=== PATIENT | male | born 1935 | race Caucasian/White ===

== ENCOUNTER 2016-05-25 05:21 | Inpatient (IN) | payer OTHER ==
[2016-05-19 11:35] LABS: URINE BILIRUBIN NEGATIVE (Negative); URINE BLOOD NEGATIVE (Negative); URINE COLOR YELLOW; URINE GLUCOSE-RANDOM* NEGATIVE (Negative); URINE KETONES NEGATIVE (Negative); URINE LEUKOCYTES-REFLEX NEGATIVE (Negative); URINE PROTEIN (DIPSTICK) NEGATIVE (Negative); URINE SPECIFIC GRAVITY 1.015 (1.003-1.035); URINE UROBILINOGEN 0.2 E.U./dl (0.2-1.0)
[2016-05-19 11:36] LABS: HEMATOCRIT 40.5 % (42.0-52.0); HEMOGLOBIN 13.6 gm/dL (14.0-18.0); MCHC 33.6 % (28.0-37.0); MCV 86.3 fL (80.0-100.0); RBC 4.69 mil/uL (4.50-6.00); RDW 14.5 % (10.5-14.5); WBC 7.6 thou/uL (4.0-11.0)
[2016-05-19 11:49] LABS: ALBUMIN 3.6 g/dL (3.4-5.0); CALCIUM 8.9 mg/dL (8.5-10.1); TOTAL BILIRUBIN 0.5 mg/dL (<0.1-1.0); TOTAL PROTEIN 7.5 g/dL (6.4-8.2)
[2016-05-19 11:50] LABS: APTT 48.9 Seconds (24.5-32.8); INR 3.1; PROTIME 31.7 Seconds (9.3-11.4)
[~2016-05-25] VITALS: Ht 177.8 cm; Wt 98.4 kg
--- NOTE | ~2016-05-25 | H ---
[facility] [address] [place] [address] HISTORY AND PHYSICAL Name: MALCOLM BACK JR Room #: 240-P [facility] IN M.R.#: [id number] Admission: 05/25/16 Attend Phys: Jesse Gregory MD Discharge: 05/26/16 Date of : 33 Report #: [id number] THIS REPORT FOR: //name// For History and Physical, please see office documentation/handwritten note in the patient's medical record. <ELECTRONICALLY SIGNED> By: Jesse Gregory MD 06/13/16 1224 0939 Jesse Gregory MD /
--- NOTE | ~2016-05-25 | EKG ---
[address] [address] ELECTROCARDIOGRAM REPORT Name: NAZANIN,MALCOLM Rick Room #: PRE IN [facility]#: [id number] Admission: Attend Phys: Jesse Gregory MD Discharge: Date of : 34 Report #: [id number] THIS REPORT FOR: //name// [facility] Test Date: 2016-05-19 Test Time: 10:36:49 Pat Name: MALCOLM BACK Department: Room: Gender: M Nurse Ob: emily kwon rn : 1935 Requested By: Jesse Gregory Order Number: [id number] : Terrence Sotelo Measurements Intervals [place] Rate: 79 P: [place]: QRS: 24 QRSD: 107 T: 60 QT: 445 QTc: 511 Interpretive Statements Atrial fibrillation Abnormal R-wave progression, early transition Borderline abnrm T, anterolateral leads No previous ECG available for comparison Electronically Signed On 05-20-2016 11:07:58 LEG ASSEMBLER by Terrence Sotelo [email or web address] <ELECTRONICALLY SIGNED> By: Terrence Sotelo MD 05/20/16 1107 1036 1036 MD GISEL Gaona
--- NOTE | ~2016-05-25 | O ---
[facility] [place] [address] OPERATIVE REPORT Name: MALCOLM BACK Room #: 240-P [facility] IN M.R.#: [id number] Admission: 05/25/16 Attend Phys: Jesse Gregory MD Discharge: 05/26/16 Date of : 34 Report #: [id number] THIS REPORT FOR: //name// CC: Clayton Gregory DATE OF SERVICE: 05/25/2016 PREOPERATIVE DIAGNOSIS: Infrarenal abdominal aortic aneurysm. POSTOPERATIVE DIAGNOSIS: Infrarenal abdominal aortic aneurysm. OPERATION: Implant of abdominal aortic stent graft. SURGEONS: Jesse Gregory MD and Spenser Zelaya MD. YARN SALVAGER: Claude Constantino. ANESTHESIA: General. INDICATIONS: The patient is an 80-year-old with an infrarenal abdominal aortic aneurysm. Neck and distal landing zones are suitable for stent graft placement. FINDINGS AND TECHNIQUE: After general anesthesia was established, incisions were made in both groins to expose the common femoral arteries; 10,000 units of heparin were given. In each side, the common femoral arteries were accessed with Seldinger needles and guidewires and 11-Jordanian sheaths were placed through the right side guidewire, then exchange catheter, then Flako wire was placed and the same thing was done to the left side. To the right side, cutdown was made and the 16-Jordanian main body sheath was placed. To the left side, the 12-Jordanian main body sheath was placed. A 23 x 14 mm x 16 cm main body device was selected to the left side, a visceral Select catheter was used to access the lower, in this case the right renal artery, and a catheter and balloon guide were placed in it to localize it. Several contrast injections were given to localize the renal and the renal artery takeoff. With this information, the main body was deployed. The contralateral gate was cannulated. Good placement within the contralateral gate was ascertained with the pigtail spin technique. A left iliac sheath shot was performed to localize the hypogastric takeoff and a marker catheter was used to measure the distance from the gate to the hypogastric. With this information, a 14 mm x 14 cm contralateral device was deployed within the contralateral limb and landed just above the left [facility] [address] [place] [address] OPERATIVE REPORT Name: MALCOLM BACK Room #: 240-P [facility] IN ..#: [id number] Admission: 05/25/16 Attend Phys: Jesse Gregory MD Discharge: 05/26/16 Date of : 34 Report #: [id number] hypogastric takeoff. The remainder of the main body was deployed and then balloons were placed through both sides to fully open the graft. A final arteriogram was taken, but this showed an area of type 1 leak. A Tri-Lobe balloon was then used to deploy the graft and iron out any folds within it and then a final arteriogram showed that there was no evidence for type 1 leak. With all of the devices in place, the dilators were replaced into the sheaths and then both the sheaths and dilators were removed, and then the guidewires were removed and then the femoral artery cutdowns were repaired with interrupted Prolene. When flow was reestablished, protamine was given to reverse the heparin, given at the outset of the case. Hemostasis was ascertained. Good pulses were palpable distally. Wounds were closed in layers. The patient was taken to the recovery area in good condition having tolerated the procedure well. <ELECTRONICALLY SIGNED> By: Jesse Gregory MD 05/29/16 1024 05 2329 Jesse Gregory MD /nt
--- NOTE | ~2016-05-25 | CATHLAB ---
[facility] [place] [address] INVASIVE PROCEDURE REPORT Name: MALCOLM BACK JR Room #: 240-P [facility] IN ..#: [id number] Admission: 05/25/16 Attend Phys: Jesse Gregory MD Discharge: 05/26/16 Date of : 34 Date of Service: 05/25/16 1524 Report #: [id number] THIS REPORT FOR: //name// CC: Clayton Gregory DATE OF SERVICE: 05/25/2016 NAME OF THE STUDY: 1. Abdominal aortic aneurysm repair using Arcata Excluder stent graft. 2. Bilateral renal angiography. INDICATIONS: 1. Abdominal aortic aneurysm. 2. Hypertension. 3. Hypercholesterolemia. 4. Coronary artery disease. OPERATORS: 1. Jesse Gregory MD of cardiovascular surgery. 2. Spenser Núñez MD of interventional radiology. PROCEDURE: Procedure and risk of stent graft, repair of abdominal aortic aneurysm, as well as the option of open repair had been thoroughly discussed with the patient by Dr. Gregory and consent obtained. DESCRIPTION OF PROCEDURE: The patient was placed on the interventional operating suite table and general anesthesia was induced. The patient's abdomen and both groins were prepped and draped in normal sterile fashion. Dr. Gregory performed cut down first over the right groin and then of the left groin. Both common femoral arteries were secured with vessel loops. I then made a puncture into the right common femoral artery and a 12-Serbian sheath was placed. I then placed the catheter into the proximal descending thoracic aorta to allow placement of the support wire. Following this, a 16-Serbian Arcata sheath was placed via the right groin to the level of the abdominal aorta. I then made a puncture into the left common femoral artery and the wire followed by 12-Serbian sheath was placed. The angled catheter was then placed to the level of the proximal descending thoracic aorta to allow placement of a support wire. Following this, we placed a 12-Serbian Arcata sheath via the left groin with its tip positioned into the lower abdominal aorta. Through this, I placed a visceral catheter and catheterized the left renal artery and left renal angiogram was obtained. Catheter was then placed in the right renal artery and right renal angiogram was obtained. Following this, a wire was placed into the right renal artery for positioning purposes followed by guiding catheter at the origin. We selected a 23 mm x 14 x 16 cm Arcata Excluder stent graft and we placed this via the right groin. Dr. Duarte and I worked together for [address] [address] INVASIVE PROCEDURE REPORT Name: MALCOLM BACK JR Room #: 240-P [facility].#: [id number] Admission: 05/25/16 Attend Phys: Jesse Gregory MD Discharge: 05/26/16 Date of : 33 Date of Service: 05/25/16 1524 Report #: [id number] positioning and deployment of the main body of the stent graft just below the level of the renal arteries. Following this, I cannulated via the left groin the contralateral gate and confirmed good intragraft position in the standard fashion. Following this, we placed a 14 mm x 14 cm contralateral limb via the left groin. Dr. Gregory and I worked together for positioning and deployment of the left iliac limb. Following this, occlusion balloon dilatation throughout the left iliac limb and at the upper portion of the graft was accomplished. Following this, Dr. Gregory and I finished deployment of the main body of the stent graft in a standard fashion. Occlusion balloon inflations throughout the right iliac limb were performed. Aortoiliac angiography was performed and showed a subtle type 1 endoleak. At this point, the Arcata Tri-Lobe balloon was taken via the right groin and multiple inflations at the proximal attachment were carried out. Final aortoiliac angiogram was performed. Catheters were removed. Both the groin sheaths were carefully removed followed by the wires. Dr. Gregory then closed the arteriotomy sites in the right and left common femoral arteries and both cutdown incisions. FINDINGS: Left renal angiogram shows left renal arteries widely patent. Right renal angiogram shows the right renal artery has good patency. The right renal artery is the lowest renal artery. Abdominal aortic aneurysm repair using Arcata Excluder stent graft was carried out in a technically satisfactory manner. At the conclusion of the procedure, there was good flow throughout the graft with no evidence of endoleak identified. The iliac artery shows good patency bilaterally with good position of the graft. IMPRESSION: Abdominal aortic aneurysm repair using Arcata Excluder stent graft as fully described above. <ELECTRONICALLY SIGNED> By: Spenser Núñez MD 05/30/16 1333 1524 2220 Spenser Núñez MD /nt
[~2016-05-25 05:21] MED LIST: ASPIR 8181 MG PO; ASPIRIN EC81 M1 PO; BRILINTA90 MG PO; COUMADIN 4 MG TA4 M1 PO; FOSINOPRIL SODI40 M1 PO; HYDROCHLOROTHIA25 M1 PO; MULTI VITAMIN1 EACH; NORVASC5 MG PO; OMEPRAZOLE 20 M20 M1 PO; PACERONE 200 M200 M1 PO; POTASSIUM CHLO10 ME1 PO; PRAVACHOL40 MG PO; TOPROL XL25 MG PO; TOPROL XL50 MG PO
[2016-05-25 11:30] VITALS: BP 135/81
[2016-05-25 19:17] VITALS: BP 120/69
[2016-05-25 19:31] VITALS: BP 120/73
[2016-05-25 19:45] VITALS: BP 124/75
[2016-05-26] VITALS (7 sets, daily range): BP systolic 104–122; BP diastolic 56–78
[2016-05-26 05:56] LABS: HEMATOCRIT 34.4 % (42.0-52.0); HEMOGLOBIN 11.4 gm/dL (14.0-18.0); MCH 29.4 pg (26.0-34.0); MCHC 33.2 % (28.0-37.0); MCV 88.4 fL (80.0-100.0); RBC 3.88 mil/uL (4.50-6.00); RDW 14.5 % (10.5-14.5); WBC 10.2 thou/uL (4.0-11.0)
[2016-05-26 06:29] LABS: CALCIUM 7.9 mg/dL (8.5-10.1); CREATININE 0.9 mg/dL (0.6-1.3); POTASSIUM 3.7 mmol/L (3.5-5.1)
== END 2016-05-26 14:18 | disposition home or self-care (01) | DRG 269 ==
LOC: ICU 05:21 → TBA 05:21 → PRE 08:52 → ICU 18:52
PROVIDERS: Physician Assistant; Surgery Vascular Surgery
PROC: 04V03DZ Restriction of Abdominal Aorta with Intraluminal Device, Percutaneous Approach (ICD-10-PCS; principal; 2016-05-25)
PROC: B4101ZZ Fluoroscopy of Abdominal Aorta using Low Osmolar Contrast (ICD-10-PCS; principal; 2016-05-25)
PROC: 03HB33Z Insertion of Infusion Device into Right Radial Artery, Percutaneous Approach (ICD-10-PCS; 2016-05-25)
DX: I71.4 Abdominal aortic aneurysm, without rupture (principal); I10 Essential (primary) hypertension; I25.10 Atherosclerotic heart disease of native coronary artery without angina pectoris; I48.91 Unspecified atrial fibrillation; E78.00 Pure hypercholesterolemia, unspecified; Z79.899 Other long term (current) drug therapy
CPT/HCPCS: 10078; 47375; 48888; 50010; 50101; 50386; 50455; 51078; 51751; 54118; 56524; 56526; 56531; 56668; 56760; 57093; 62110; 62900; 70005

== ENCOUNTER → 2016-10-19 | Outpatient (CLI) | payer OTHER ==
[~2016-10-19] VITALS: Ht 180.3 cm; Wt 93.0 kg
[~2016-10-19] MED LIST changes: +ELIQUIS5 MG PO
--- NOTE | ~2016-10-19 | H ---
[facility] [place] [address] HISTORY AND PHYSICAL Name: NAZANIN,MALCOLM Rick CROWLEY [id number] Admission: 10/19/16 Attend Phys: Dariel Bhandari Discharge: Date of : 34 Report #: [id number] THIS REPORT FOR: //name// CC: Clayton Bhandari HISTORY OF PRESENT ILLNESS: The patient is a very pleasant 80-year-old gentleman with known paroxysmal atrial fibrillation who presented for evaluation in the office and was found to be in atrial fibrillation symptoms. His amiodarone level was low and the dosing was increased. He had converted to atrial fib after having GI bleed earlier this year and has not reverted out spontaneously. He is symptomatic with exertional dyspnea and diaphoresis. PHYSICAL EXAMINATION: GENERAL: Revealed a well-developed, well-nourished white male resting comfortably in no acute distress. HEENT: Normocephalic, atraumatic. Pupils are equal, round, reactive to light and accommodation. Extraocular muscles are intact. Sclerae and conjunctivae are anicteric. NECK: JVD is normal. Carotid upstrokes are bilaterally symmetrical. No bruits are heard. No thyromegaly. No lymphadenopathy. LUNGS: Clear to auscultation. No wheezes, rhonchi or crackles. No CVA tenderness. CARDIAC: Demonstrates a regular rhythm. Normal first and second heart sounds. No ventricular or atrial gallops, no rubs noted. No murmurs. No lifts or heaves, PMI normal. ABDOMEN: Soft, nontender, nondistended. Normal bowel sounds. EXTREMITIES: Without cyanosis, clubbing or edema. Distal pulses are intact. DTR symmetrical. NEUROLOGIC: Cranial nerves 2-12 are grossly normal and symmetrical. PSYCHIATRIC: Alert, oriented with normal affect. SKIN: Warm and dry. VITAL SIGNS: Noted and reviewed in the chart. IMPRESSION: Paroxysmal atrial fibrillation, symptomatic. We will proceed with electrical cardioversion. The risks, complications and alternatives to electrical cardioversion and conscious sedation have been discussed with the patient. He voices understanding and wishes to proceed. <ELECTRONICALLY SIGNED> By: Dariel Bhandari MD 10/19/16 1718 1313 1415 Dariel Bhandari MD /nt
[2016-10-19 12:31] VITALS: BP 141/79
[2016-10-19 12:35] LABS: HEMATOCRIT 39.9 % (42.0-52.0); HEMOGLOBIN 12.7 gm/dL (14.0-18.0); MCH 25.6 pg (26.0-34.0); MCHC 31.7 g/dL (28.0-37.0); MCV 80.8 fL (80.0-100.0); RBC 4.94 mil/uL (4.50-6.00); RDW 15.7 % (10.5-14.5); WBC 6.8 thou/uL (4.0-11.0)
[2016-10-19 12:42] LABS: CALCIUM 9.1 mg/dL (8.5-10.1)
[2016-10-19 12:47] LABS: ALBUMIN 3.8 g/dL (3.4-5.0); TOTAL BILIRUBIN 0.3 mg/dL (<0.1-1.0); TOTAL PROTEIN 7.6 g/dL (6.4-8.2)
[2016-10-19 12:51] LABS: INR 1.8
== END | disposition home or self-care (01) ==
LOC: CATH 06:55
PROVIDERS: Internal Medicine
DX: I48.0 Paroxysmal atrial fibrillation (principal); Z53.9 Procedure and treatment not carried out, unspecified reason; I25.10 Atherosclerotic heart disease of native coronary artery without angina pectoris; I71.4 Abdominal aortic aneurysm, without rupture; Z79.899 Other long term (current) drug therapy; Z79.82 Long term (current) use of aspirin

== ENCOUNTER → 2016-11-16 | Outpatient (CLI) | payer OTHER ==
[~2016-11-16] VITALS: Ht 177.8 cm; Wt 93.0 kg
--- NOTE | ~2016-11-16 | CATHLAB ---
[facility] [address] [place] [address] INVASIVE PROCEDURE REPORT Name: MALCOLM BACK JR Room #: [facility]#: [id number] Admission: 11/16/16 Attend Phys: Dariel Worrell Discharge: Date of : 33 Date of Service: 12/16/16 0005 Report #: [id number] THIS REPORT FOR: //name// CC: Clayton Bhandari DATE OF SERVICE: 11/16/2016 INDICATIONS: This is an 80-year-old male patient with symptomatic paroxysmal atrial fibrillation. PROCEDURES: 1. Electrical cardioversion. 2. Supervision of conscious sedation. FISHER POT: Dariel Bhandari M.D. BRIEF DESCRIPTION OF PROCEDURE: After informed consent was obtained, the patient was brought to the cardiac catheterization prep and hold in stable condition. He was sedated with 2 mg of Versed and 25 of Demerol IV. Continuous electrocardiographic and oximetric monitoring was performed throughout the procedure. Utilizing AP paddles, a 200 joule synchronized biphasic shock was performed, which converted the patient to sinus rhythm with a first-degree AV block. Subsequent to this, the patient was reversed with Romazicon and Narcan per standard protocol. The patient tolerated the procedure well. There were no complications. <ELECTRONICALLY SIGNED> By: Dariel Bhandari MD 12/16/16 0842 0005 0037 Dariel Bhandari MD /ramiro
[2016-11-16 10:07] VITALS: BP 136/73
[2016-11-16 10:11] LABS: HEMATOCRIT 38.8 % (42.0-52.0); HEMOGLOBIN 12.6 gm/dL (14.0-18.0); MCH 25.7 pg (26.0-34.0); MCHC 32.5 g/dL (28.0-37.0); MCV 79.3 fL (80.0-100.0); RBC 4.9 mil/uL (4.50-6.00); RDW 16.8 % (10.5-14.5); WBC 6.4 thou/uL (4.0-11.0)
[2016-11-16 10:20] LABS: CALCIUM 9.3 mg/dL (8.5-10.1); CREATININE 1.2 mg/dL (0.7-1.3)
[2016-11-16 10:24] LABS: ALBUMIN 3.5 g/dL (3.4-5.0); APTT 32.1 Seconds (24.5-32.8); INR 1.1; PROTIME 10.9 Seconds (9.3-11.4); TOTAL BILIRUBIN 0.3 mg/dL (<0.1-1.0); TOTAL PROTEIN 7.7 g/dL (6.4-8.2)
== END | disposition home or self-care (01) ==
LOC: CATH 09:35
PROVIDERS: Internal Medicine
DX: I48.0 Paroxysmal atrial fibrillation (principal); I10 Essential (primary) hypertension; Z90.49 Acquired absence of other specified parts of digestive tract; I42.9 Cardiomyopathy, unspecified; I11.0 Hypertensive heart disease with heart failure; I50.9 Heart failure, unspecified; E78.5 Hyperlipidemia, unspecified; R00.1 Bradycardia, unspecified; I73.9 Peripheral vascular disease, unspecified; K21.9 Gastro-esophageal reflux disease without esophagitis; I25.10 Atherosclerotic heart disease of native coronary artery without angina pectoris; Z95.1 Presence of aortocoronary bypass graft; I71.4 Abdominal aortic aneurysm, without rupture

== ENCOUNTER 2016-12-28 21:03 | Emergency (ER) | payer OTHER ==
[~2016-12-28] VITALS: Ht 177.8 cm; Wt 93.0 kg
[2016-12-28] MEDS ORDERED: TRAMADOL 50 MG50 MG PO (23:26)
== END 2016-12-29 01:02 | disposition home or self-care (01) ==
LOC: ER 21:03
DX: K21.9 Gastro-esophageal reflux disease without esophagitis (principal); I50.9 Heart failure, unspecified; I11.0 Hypertensive heart disease with heart failure; I42.9 Cardiomyopathy, unspecified; Z98.61 Coronary angioplasty status; Z79.82 Long term (current) use of aspirin; F10.10 Alcohol abuse, uncomplicated; M71.21 Synovial cyst of popliteal space [Baker], right knee

== ENCOUNTER 2017-01-03 05:11 | Day surgery (SDC) | payer OTHER ==
[~2017-01-03] VITALS: Ht 177.8 cm; Wt 93.0 kg
--- NOTE | ~2017-01-03 | EKG ---
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: YODIT : 1935 Requested By: Andrew Winslow Order Number: [id number] MD: Cyrus Jimenez Measurements Intervals [place] Rate: 54 P: 10 [place]: 195 QRS: -16 QRSD: 122 T: 38 QT: 507 QTc: 481 Interpretive Statements Sinus rhythm Nonspecific T wave abnormality Compared to ECG 05/19/2016 10:36:49 No significant change was found Electronically Signed On 01-03-2017 10:56:50 CDT by Cyrus Jimenez [email or web address] <ELECTRONICALLY SIGNED> By: Cyrus Jimenez MD, [facility] 01/03/17 1056 Cyrus Jimenez MD, [facility] /EPI
--- NOTE | ~2017-01-03 | O ---
[facility] [place] [address] OPERATIVE REPORT Name: MALCOLM BACK JR Room #: 150-3 [facility]#: [id number] Admission: 01/03/17 Attend Phys: Andrew Winslow MD Discharge: Date of : 34 Report #: [id number] THIS REPORT FOR: //name// CC: Clayton Winslow DATE OF SURGERY: 01/03/2017. PREOPERATIVE DIAGNOSIS: Right calf hematoma. POSTOPERATIVE DIAGNOSIS: Right calf hematoma. PROCEDURE: Evacuation of right calf hematoma. SURGEON: Andrew Winslow MD. YEAST PUMPER: Monserrat Langford PA-C. ANESTHESIA: LMA. TOURNIQUET TIME: 19 minutes. ESTIMATED BLOOD LOSS: 25 mL. COMPLICATIONS: None. SPECIMENS: None. CONDITION UPON LEAVING THE OPERATING ROOM: Stable. INDICATIONS FOR PROCEDURE: The patient is an 81-year-old gentleman who is on Eliquis. Last week, he started to get the swelling and tightness in his right calf. MRI scan was performed showing to have a hematoma around his soleus musculature with mass effect. He had no signs of compartment syndrome; however, given his pain and symptoms. He elected for evacuation of the right leg hematoma. DESCRIPTION OF PROCEDURE: Risks, benefits, alternatives, complications were discussed in detail with the patient including but not limited to risk of anesthesia, risk of damage to nerves, arteries, blood vessels, risk for infection, bleeding, risk for continued leg pain, recurrence, hematoma and need for reoperation. Informed consent was obtained from the patient. Right lower extremity was appropriately marked in the preoperative holding area. IV Ancef was given for preoperative antibiotics was brought to the operating room and placed in supine position on operating room table. LMA anesthesia was induced without complication. Tourniquet was placed on the right thigh. Right lower extremity was prepped and draped in normal sterile fashion. Timeout was [address] [address] OPERATIVE REPORT Name: NAZANINMALCOLM Cabrera Room #: 150-3 [facility]#: [id number] Admission: 01/03/17 Attend Phys: Andrew Winslow MD Discharge: Date of : 34 Report #: [id number] performed properly identifying the patient and procedure as well as the instrumentation. All in the operating room were in agreement. Right lower extremity was elevated, tourniquet was inflated. Tourniquet time was 19 minutes. A medial approach to the posterior and superficial posterior and deep posterior compartments was made with 10 blade through the skin based along the posterior medial border of the tibia. Dissection was taken down to the fascia with care, taking care to protect the saphenous vein. A 10 blade was used to make an incision along deep along the periosteal and fascial insertion of the superficial posterior compartment and this was taken proximally and distally. Elkins elevator was used to elevate off the posterior musculature from the tibia. The interval between the posterior deep and posterior superficial compartment was then entered bluntly with finger and there was a moderate amount of bloody drainage from this area. The wound was thoroughly irrigated with normal saline and tourniquet was deflated. Hemostasis was obtained with Bovie cautery. The skin was closed with 2-0 Vicryl and 3-0 nylon. Soft dressing of Adaptic, 4 x 4, Webril, Inderjit wrap and a Cam walker were applied. The patient tolerated this procedure well and went to the recovery room under the care of anesthesia postoperatively. <ELECTRONICALLY SIGNED> By: Andrew Winslow MD 01/03/17 1401 1136 1156 Andrew Winslow MD /nt
[~2017-01-03 05:11] MED LIST changes: +TRAMADOL 50 MG50 MG PO
[2017-01-03 08:56] LABS: POTASSIUM 3.7 mmol/L (3.5-5.1)
[2017-01-03 09:21] VITALS: BP 132/96
[2017-01-03 11:50] VITALS: BP 132/96
== END 2017-01-03 12:38 | disposition home or self-care (01) ==
LOC: OR 05:11 → TBA 05:11 → OR 10:33
PROVIDERS: Orthopaedic Surgery
DX: S80.11XA Contusion of right lower leg, initial encounter (principal); I11.0 Hypertensive heart disease with heart failure; I50.9 Heart failure, unspecified; I48.91 Unspecified atrial fibrillation; I25.10 Atherosclerotic heart disease of native coronary artery without angina pectoris; E78.5 Hyperlipidemia, unspecified; I73.89 Other specified peripheral vascular diseases; K21.9 Gastro-esophageal reflux disease without esophagitis; I42.9 Cardiomyopathy, unspecified; Z95.5 Presence of coronary angioplasty implant and graft; Z90.49 Acquired absence of other specified parts of digestive tract; Z85.828 Personal history of other malignant neoplasm of skin; Z98.890 Other specified postprocedural states; Z79.899 Other long term (current) drug therapy; Z79.82 Long term (current) use of aspirin; X58.XXXA Exposure to other specified factors, initial encounter; Y93.89 Activity, other specified; Y92.89 Other specified places as the place of occurrence of the external cause; Y99.8 Other external cause status
CPT/HCPCS: 50010; 50101; 50386; 56524; 56527; 57091; 62110; 62900; 70005

== ENCOUNTER 2018-06-15 23:38 | Emergency (ER) | payer OTHER ==
[~2018-06-15] VITALS: Ht 180.3 cm; Wt 95.3 kg
[2018-06-15 23:49] VITALS: BP 159/75
[2018-06-15] MEDS ORDERED: RAPAFLO8 MG PO (23:56)
[2018-06-16] MEDS ORDERED: TRAMADOL 50 MG50 MG PO (00:41)
== END 2018-06-16 01:16 | disposition home or self-care (01) ==
LOC: ER 23:38
DX: S69.92XA Unspecified injury of left wrist, hand and finger(s), initial encounter (principal); I42.9 Cardiomyopathy, unspecified; I11.0 Hypertensive heart disease with heart failure; I50.9 Heart failure, unspecified; E78.5 Hyperlipidemia, unspecified; I73.9 Peripheral vascular disease, unspecified; K21.9 Gastro-esophageal reflux disease without esophagitis; I25.10 Atherosclerotic heart disease of native coronary artery without angina pectoris; Z95.5 Presence of coronary angioplasty implant and graft; Z90.89 Acquired absence of other organs; Z90.49 Acquired absence of other specified parts of digestive tract; W00.0XXA Fall on same level due to ice and snow, initial encounter; Y92.89 Other specified places as the place of occurrence of the external cause; Y93.89 Activity, other specified; Y99.8 Other external cause status

== ENCOUNTER → 2019-07-22 | Outpatient (CLI) | payer OTHER ==
[~2019-07-22] MED LIST changes: +RAPAFLO8 MG PO
== END ==
LOC: SJCVC 15:03
DX: I48.0 Paroxysmal atrial fibrillation (principal); I25.10 Atherosclerotic heart disease of native coronary artery without angina pectoris; I71.4 Abdominal aortic aneurysm, without rupture; I11.0 Hypertensive heart disease with heart failure; I50.9 Heart failure, unspecified; E78.00 Pure hypercholesterolemia, unspecified; I42.9 Cardiomyopathy, unspecified; Z90.49 Acquired absence of other specified parts of digestive tract; Z79.899 Other long term (current) drug therapy